=== PATIENT | female | born 1985 | race Caucasian/White ===

== ENCOUNTER 2018-08-04 07:11 | Inpatient (IN) | payer BC ==
[2018-08-04] VITALS (30 sets, daily range): BP systolic 95–117; BP diastolic 55–75; PULSE 65–91; TEMP 97.5–98.1
[~2018-08-04] VITALS: Ht 177.8 cm; Wt 78.2 kg
[~2018-08-04 07:11] MED LIST: ASPIRIN 81M81 MG/TA2 PO; EQUALINE PRENATAL; FOLIC ACID 11 MG/TA1 PO; MOTRIN 800800 MG/TAB PO; NO HOME MEDICATIONS; PERCOCET 325 MG1 TA2 PO
[2018-08-04] MEDS ORDERED: NATURAL IRON65 MG (07:52)
[2018-08-04 09:04] LABS: BASO % 0.3 % (0.0-2.0); EOS # 0.1 (0.0-0.7); EOS % 1.3 % (0-4.0); GRAN # 8.3 (1.4-6.5); GRAN % 83.2 % (42.2-75.2); HEMATOCRIT 38.5 % (37.0-47.0); HEMOGLOBIN 12.6 g/dl (12.5-16.0); LYMPH # 0.8 (1.2-3.4); LYMPH % 7.8 % (20.0-51.0); MEAN CELL VOLUME 101 fl (80.0-100.0); MEAN CORPUSCULAR HEMOGLOBIN 33 pg (27.0-31.0); MEAN CORPUSCULAR HGB CONC 33 g/dl (33.0-37.0); MEAN PLATELET VOLUME 10.4 fl (7.4-10.4); MONO # 0.7 (0.1-0.6); MONO % 6.6 % (1.7-9.3); PLATELET COUNT 129 K/mm3 (130-400); RED BLOOD COUNT 3.83 M/mm3 (4.10-5.30); REDCELL DISTRIBUTION WIDTH-CV 15.3 % (11.5-14.5)
[2018-08-05 06:30] VITALS: BP 96/56; PULSE 65; TEMP 98.2
[2018-08-05 16:00] VITALS: BP 106/73; PULSE 77; TEMP 98.4
[2018-08-05 20:00] VITALS: BP 100/68; PULSE 78; TEMP 98.4
[2018-08-06] MEDS ORDERED: MOTRIN 800800 MG/TAB PO (08:28)
[2018-08-06 08:30] VITALS: BP 102/70; PULSE 81; TEMP 97.3
== END 2018-08-06 14:20 | disposition home or self-care (01) | DRG 806 ==
LOC: LDR 07:11 → OB 15:56
PROVIDERS: Obstetrics & Gynecology
PROC: 10E0XZZ Delivery of Products of Conception, External Approach (ICD-10-PCS; principal; 2018-08-04)
PROC: 0W8NXZZ Division of Female Perineum, External Approach (ICD-10-PCS; 2018-08-04)
PROC: 3E033VJ Introduction of Other Hormone into Peripheral Vein, Percutaneous Approach (ICD-10-PCS; 2018-08-04)
PROC: 10907ZC Drainage of Amniotic Fluid, Therapeutic from Products of Conception, Via Natural or Artificial Opening (ICD-10-PCS; 2018-08-04)
DX: O69.81X0 Labor and delivery complicated by cord around neck, without compression, not applicable or unspecified (principal); E72.12 Methylenetetrahydrofolate reductase deficiency; Z37.0 Single live birth; Z3A.39 39 weeks gestation of pregnancy; O99.824 Streptococcus B carrier state complicating childbirth; O99.284 Endocrine, nutritional and metabolic diseases complicating childbirth
CPT/HCPCS: J2540; J2590; J7120